=== PATIENT | male | born 1965 ===

== ENCOUNTER → 2018-07-29 08:32 | Day surgery (SDC) | payer BC ==
[~2018-07-29 08:32] MED LIST: Buffered Lidocaine 0.9% SYRIN* 5 ML/SYR SYRINGE INTRADERM ONE; Buffered Lidocaine 0.9% SYRIN* 5 ML/SYR SYRINGE ONE; Bupivacaine 0.25% EPI 200,000* 30 ML SDV ONE; Bupivacaine 0.5% SDV PF* 30ML VIAL ONE; Dexamethasone TAB* 4 MG ONE; Dexamethasone TAB* 4 MG PO ONE; DiMENhydriNATE IV* 50 MG/ML VIAL IV PUSH PRN; Famotidine IV* 10 MG/ML 2 ML (20 mg) IV ONE; Famotidine IV* 10 MG/ML 2 ML (20 mg) ONE; KETAMINE HCL* 50 MG/ML 10 ML VIAL ONE; Ketorolac INJ* 30 MG/ML 1 ML VIAL ONE; Labetalol IV* 5 MG/ML 20 ML VIAL ONE; Lidocaine 1% INJ* 10 MG/ML 30 ML SDV ONE; Lidocaine 1% MPF wEPI 200,000* 30 ML SDV ONE; Lidocaine 2% PF * 5 ML VIAL ONE; Midazolam* 1 MG/ML 5 ML VIAL (5 MG) ONE; Morphine VIAL* 4 MG/ML VIAL (1 ml vial) IV PRN; Naloxone* 0.4 MG/ML 1 ML VIAL IV PRN; Ondansetron ODT TAB* 4 MG ONE; Ondansetron TAB* 4 MG PO ONE; PROCHLORPERAZINE INJ 5 MG/ML 2 ML VIAL IV PRN; Propofol* 500 MG/50 ML BTL ONE; ceFAZolin 2 GM PREMIX in ORs 2 GM/50 ML BAG IVPB ONE; fentaNYL* 50 MCG/ML 2 ML VIAL (100 MCG VIAL) IV PRN; fentaNYL* 50 MCG/ML 2 ML VIAL (100 MCG VIAL) ONE; hydrALAZINE IV* 20 MG/ML VIAL ONE; oxyCODONE/Acetamin 5/325 MG* TAB PO PRN
[2018-07-29 11:39] VITALS: BP 140/87
--- NOTE | 2018-07-30 02:56 | OP ---
CC: Mario Olivares MD; Dr. Valera. OPERATIVE REPORT: DATE OF OPERATION: 07/29/18 DATE OF : 67 SURGEON: Mario Olivares MD [employer] SCHEDULER: AMELIA Hung ANESTHESIOLOGIST: Dr. Yates. ANESTHESIA: LMAC anesthesia. PRE-OP DIAGNOSIS: Left inguinal hernia. POST-OP DIAGNOSIS: Left inguinal hernia. OPERATIVE PROCEDURE: Open left inguinal hernia repair with mesh. DESCRIPTION OF PROCEDURE: The patient was supine on the operating room table after adequate intraven ous sedation, compression stockings, Beverly Hugger warmer, and intravenous antibiotics, the left groin was clipped and prepped with antiseptic, draped in sterile fashion. Local infiltrative anesthesia wa s administered. Approximately 7 cm incision was created and dissection carried down to the external o blique which was opened in the direction of its fibers. There was a large inguinal scrotal hernia. The cord structures were encircled with a Joshua drain. The sac was about 4 cm across and extended d own the upper scrotum, but it was able to be dissected off the cord structures very nicely and was re duced and a colon mesh plug was placed into the internal ring. It was sutured there with 2-0 Vicryl and then a second piece of mesh was placed over the inguinal floor, sutured at the tubercle. Tails w ere split, brought around the cord structures, tacked down laterally. External oblique was closed ov er top with 2-0 Vicryl, Sudheer's with 3-0 Vicryl, skin with 4-0 Prolene followed by a sterile dressin g. He tolerated the procedure well, was brought to recovery in good condition. There are no complic ations, no drains. No pathologic specimens. Sponge and instrument counts correct. Estimated blood loss less than 20 mL. [id number]/[facility] #: [id number]
== END | disposition home or self-care (01) ==
LOC: OR 08:32
PROVIDERS: ATTEND Surgery
DX: K40.90 Unilateral inguinal hernia, without obstruction or gangrene, not specified as recurrent (principal)
CPT/HCPCS: A9270-GY; C1781; J0360; J0690; J1885; J2001; J2250; J2704; J3010; J8540